=== PATIENT | male | born 1945 ===

== ENCOUNTER 2018-08-20 14:59 | Inpatient (IN) | payer MEDICARE ==
[2018-08-20 15:15] VITALS: BMI 27.4
[2018-08-20] MEDS ORDERED: Sodium Chloride 0.9% 1,000 ML IV STA (15:36)
--- NOTE | 2018-08-20 16:38 | RAD ---
Date of service: 08/20/2018 HISTORY: palpitations COMPARISON: 06/10/2016 FINDINGS: LUNGS: No active pulmonary disease. PLEURA: No significant pleural effusion identified, no pneumothorax apparent. CARDIOVASCULAR: No aortic atherosclerotic calcification present. Mild cardiomegaly no pulmonary vascular congestion. OSSEOUS STRUCTURES: No significant abnormalities. VISUALIZED UPPER ABDOMEN: Normal. OTHER FINDINGS: None. IMPRESSION: No active disease.
[2018-08-20 16:49] LABS: BASO # 0.06 K/mm3 (0.0-2.0); BASO % 0.8 % (0.0-3.0); EOS # 0.3 (0.0-0.7); EOS % 4.2 % (1.5-5.0); HEMOGLOBIN 13.4 g/dL (14.0-18.0); LYMPH # 2.7 (1.2-3.4); MEAN CELL VOLUME 78.8 fl (80.0-105.0); MEAN CORPUSCULAR HEMOGLOBIN 27.3 pg (25.0-35.0); MEAN CORPUSCULAR HGB CONC 34.7 g/dl (31.0-37.0); MEAN PLATELET VOLUME 10.3 fl (7.0-11.0); MONO # 0.5 (0.1-0.6); MONO % 6.3 % (1.0-6.0); RBC 4.9 10^6/uL (3.5-6.1); RED CELL DISTRIBUTION WIDTH 13.7 % (11.5-14.5); WHITE BLOOD COUNT 7.9 10^3/uL (4.5-11.0)
[2018-08-20 16:50] LABS: BLOOD UREA NITROGEN 17 mg/dL (7-21); CALCIUM 9.8 mg/dL (8.4-10.5); GFR NON-AFRICAN AMERICAN > 60
[2018-08-20 17:01] LABS: TROPONIN I < 0.01 ng/mL
--- NOTE | 2018-08-20 17:32 | ED PDOC ---
Arrival/HPI - General Chief Complaint: Palpitations Time Seen by Provider: 08/20/18 15:18 - History of Present Illness Narrative History of Present Illness (Text): Patient reports that he went to his PMD Dr. Ryan for routine lab results, and was found to have HR in the 140's. He does have a history of atrial flutter, states that he takes medication for it but does not remember the name. Weather Observer is Dr. Yates. He does not recall if he has ever had any cardioversion or ablation for the aflutter in the past. He denies any current chest pain, dyspnea, palpitations, or any other symptoms. States that if he did not go to the doctor today he would not have known his heart rate was high. Past Medical History - Provider Review Nursing Documentation Reviewed: Yes FLOYD Report Viewed: Yes - Travel History Have you recently traveled outside [place] w/in the past 3 mons?: No - Infectious Disease Hx of Infectious Diseases: None - Tetanus Immunization Tetanus Immunization: Unknown - Cardiac Hx Cardiac Disorders: Yes Hx Hypertension: Yes Other/Comment: a-flutter - Pulmonary Hx Respiratory Disorders: No - Neurological Hx Neurological Disorder: No - HEENT Hx HEENT Disorder: No - Renal Hx Renal Disorder: No - Endocrine/Metabolic Hx Endocrine Disorders: Yes Hx Diabetes Mellitus Type 2: Yes - Hematological/Oncological Hx Blood Disorders: No - Integumentary Hx Dermatological Disorder: No - Musculoskeletal/Rheumatological Hx Musculoskeletal Disorders: No - Gastrointestinal Hx Gastrointestinal Disorders: No - Genitourinary/Gynecological Hx Genitourinary Disorders: No - Psychiatric Hx Psychophysiologic Disorder: No Hx Substance Use: No - Surgical History Hx Appendectomy: Yes Other/Comment: abdominal surgery - Anesthesia Hx Anesthesia: Yes Hx Anesthesia Reactions: No Hx Malignant Hyperthermia: No - Suicidal Assessment Feels Threatened In Home Enviroment: No Family/Social History - Physician Review Nursing Documentation Reviewed: Yes Family/Social History: Unknown Family HX Smoking Status: Current Some Days Smoker Hx Alcohol Use: No Hx Substance Use: No Hx Substance Use Treatment: No Allergies/Home Meds Allergies/Adverse Reactions: Allergies strawberry Allergy (Verified 08/20/18 15:21) RASH Home Medications: Home Meds Medication Instructions Recorded Confirmed Ramipril [Altace] 10 mg PO DAILY 12/18/12 08/20/18 Glimepiride [amaRYL] 4 mg PO DAILY 08/15/15 08/20/18 metFORMIN [glucOPHAGE] 500 mg PO BID 08/15/15 08/20/18 Aspirin [Aspirin Chewable] 81 mg PO DAILY 08/20/18 08/20/18 Review of Systems - Review of Systems Constitutional: Normal Respiratory: Normal Cardiovascular: Normal Gastrointestinal: Normal Musculoskeletal: Normal Skin: Normal Neurological: Normal Psychiatric: Normal Physical Exam Vital Signs Reviewed: Yes Vital Signs Temp Pulse Resp BP Pulse Ox 08/20/18 16:42 97.9 F 92 H 18 107/85 96 08/20/18 16:34 142 H 109/78 08/20/18 15:15 97.9 F 147 H 19 118/86 98 Temperature: Afebrile Blood Pressure: Normal Pulse: Tachycardic Respiratory Rate: Normal Appearance: Positive for: Well-Appearing, Non-Toxic Pain Distress: None Mental Status: Positive for: Alert and Oriented X 3 - Systems Exam Head: Present: Atraumatic, Normocephalic Conjunctiva: Present: Normal Mouth: Present: Moist Mucous Membranes Respiratory/Chest: Present: Clear to Auscultation Cardiovascular: Present: Tachycardic. No: Irregular Rhythm Abdomen: No: Tenderness, Distention, Rebound, Guarding Upper Extremity: Present: Normal Inspection Lower Extremity: Present: Normal Inspection Neurological: Present: GCS=15 Skin: Present: Warm, Dry, Normal Color. No: Diaphoretic Psychiatric: Present: Alert, Oriented x 3 Medical Decision Making ED Course and Treatment: Patient seen and examined. EKG done showing rapid atrial flutter. Patient with no complaints, states that usually when he goes into rapid aflutter he feels his "heart beating fast", but that he has absolutely no symptoms today. NS bolus initiated. 15mg cardizem ivp given. Repeat HR 91. Labs and CXR done, results reviewed. Case discussed with Dr. Ryan, accepts patient for admission to her service. Consult placed to Dr. Yates. Patient maintained HR 90-100 throughout ED course, continued to have no complaints. However HR started to go up again to the 130's shortly before transfer to the floor. 20mg cardizem ivp given. - Lab Interpretations Lab Results: Troponin I < 0.01 ng/mL 08/20/18 16:35 - RAD Interpretation Narrative RAD Interpretations (Text): IMPRESSION: No active disease Radiology Orders: 08/20/18 15:36 CXR [CHEST PORTABLE] [RAD] Stat - EKG Interpretation EKG Interpretation (Text): 1515 Atrial flutter with variable AV block, rate 136bpm, normal axis, normal QTc, no ST elevation, inferolateral TWI 1718 Atrial flutter with variable AV block, rate 91bpm, normal axis, normal QTc, no ST elevation, TWI again noted in inferolateral leads - Medication Orders Current Medication Orders: Discontinued Medications Diltiazem HCl (Cardizem) 15 mg IVP STAT STA Stop: 08/20/18 15:37 Last Admin: 08/20/18 16:34 Dose: 15 mg IVP Administration Document 08/20/18 16:34 LA (Rec: 08/20/18 16:34 LA [id number]) Charges for Administration # of IVP Administrations 1 MAR Pulse and Blood Pressure Document 08/20/18 16:34 LA (Rec: 08/20/18 16:34 LA [id number]) Pulse Pulse Rate (60-90) 142 Blood Pressure Blood Pressure (100/60-150/90) 109/78 Sodium Chloride (Sodium Chloride 0.9%) 1,000 mls @ 999 mls/hr IV .Q1H1M STA Stop: 08/20/18 16:36 Last Admin: 08/20/18 16:34 Dose: 999 mls/hr eMAR Start Stop Document 08/20/18 16:34 LA (Rec: 08/20/18 16:35 LA [id number]) Intravenous Solution Start Date 08/20/18 Start Time 16:35 End Date 08/20/18 End time 17:36 Total Infusion Time 61 Disposition/Present on Arrival - Present on Arrival Any Indicators Present on Arrival: No History of DVT/PE: No History of Uncontrolled Diabetes: No Urinary Catheter: No History of Decub. Ulcer: No History Surgical Site Infection Following: None - Disposition Have Diagnosis and Disposition been Completed?: Yes Diagnosis: Atrial flutter with rapid ventricular response Disposition: HOSPITALIZED Disposition Time: 17:39 Condition: FAIR
[2018-08-20] MEDS ORDERED: Pneumococcal 23-Valent Vaccine IM ONE (21:20)
[2018-08-20] MEDS ORDERED: Influenza Vaccine 60 mcg/0.5 mL SYR (4YR UP) IM ONE (21:20)
--- NOTE | 2018-08-20 21:43 | CARD ---
APPROVED REPORT Date of service: 08/20/2018 EKG Measurement Heart [id number] [id number] <Conclusion> Poor data quality, interpretation may be adversely affected Atrial flutter with variable AV block Non diagnostic Q waves in the inferior leads T wave abnormalities CCR Abnormal ECG
--- NOTE | 2018-08-20 21:47 | CARD ---
APPROVED REPORT Date of service: 08/20/2018 EKG Measurement Heart [id number] <Conclusion> Atrial flutter with variable AV block T wave abnormalities Abnormal ECG
[2018-08-20] MEDS: Insulin Reg-LOW-Coverage SC SCH (22:05)
[2018-08-21] MEDS ORDERED: diltiaZEM IVPB 100mg in NS 100 ML IV PRN ×2 (07:45→08:55)
[2018-08-21] MEDS: Insulin Reg-LOW-Coverage SC SCH ×4 (08:06→22:18)
--- NOTE | 2018-08-21 15:19 | CON ---
DATE: 08/21/2018 REQUESTING PHYSICIAN: Martha Ryan MD REASON FOR CONSULTATION: Atrial flutter. HISTORY: This is a 73-year-old man well known to me with a history of paroxysmal atrial flutter in the past as well as a history of hypertension, diabetes and remote tobacco abuse, who was being seen for routine blood work. He was noted to be tachycardic and sent to the emergency room. He was noted to be in atrial flutter and was started on IV Cardizem. He remains in atrial flutter at the present time. His current rate is ranging from 100 to 140. He is unaware of any rapid rhythm. He denies any chest pain or dyspnea. He was previously admitted in 2016 with similar problems. He was maintained on antiarrhythmic therapy but had no evidence of recurrence and was ultimately taken off diltiazem. Cardiac work had been performed including a nuclear stress test which showed fixed anteroseptal and apical defect and ejection fraction of 53%. An echocardiogram showed normal LV size and function with mild anteroseptal hypokinesis, mild mitral and tricuspid regurgitation. He had deferred cardiac catheterization in the past. MEDICATIONS AT HOME: Include aspirin, Glucophage, Amaryl and Altace. ALLERGIES: HE HAS NO TRUE ALLERGIES AND NO DRUG ALLERGIES. FAMILY HISTORY: Both parents from age-related illness. SOCIAL HISTORY: He smokes occasionally. He denies alcohol use. He is retired. REVIEW OF SYSTEMS: Ten-point review of systems is otherwise unremarkable. PHYSICAL EXAMINATION GENERAL: He is a middle-aged man, appears comfortable at the present time. VITAL SIGNS: His blood pressure is 130/80 with a pulse of 90-140, respirations are 14. He is afebrile. HEENT: Normocephalic, atraumatic. NECK: Supple. No JVD noted. CHEST: Few scattered rhonchi heard. HEART: PMI displaced laterally with rapid rhythm which is occasionally irregular. ABDOMEN: Soft, nontender. Normoactive bowel sounds. EXTREMITIES: No clubbing, cyanosis, or edema. SKIN: Warm and dry. PSYCHIATRIC: Normal mood and affect. NEUROLOGIC: Alert and oriented x3. No gross motor or sensory deficits noted. DIAGNOSTIC DATA: EKG reveals atria flutter with very low conduction. Chest x-ray reveals mildly increased cardiac silhouette with clear lung iverson. White count 7.9, hemoglobin and hematocrit 13.4 and 38.6 with platelet count of 266,000. Potassium 4.4, BUN and creatinine are 17 and 0.7, glucose 159, troponin is negative. IMPRESSION 1. Paroxysmal atrial flutter now with rapid rate and recurrent, likely secondary to hypertensive heart disease. 2. History of hypertension and diabetes. 3. Mildly abnormal stress test, requested conservative management in the past. RECOMMENDATIONS: IV diltiazem will be continued for now. Oral diltiazem will be added to his regimen as well. If his rate is not well controlled, single dose of digoxin will be administered. Anticoagulant therapy with Eliquis 5 mg b.i.d. has been initiated. If it is not converted to sinus rhythm spontaneously, eventual cardioversion can be considered. Given his recurrence and risk factors, chronic anticoagulant therapy appears appropriate at the present time. Thank you for this consultation and we will be happy to follow along as needed. Wojciech Yates MD MTDD
[2018-08-22 06:56] VITALS: TEMP 98.2; O2SAT 95
[2018-08-22 07:06] LABS: HEMOGLOBIN 12.9 g/dL (14.0-18.0); MEAN CELL VOLUME 77.4 fl (80.0-105.0); MEAN CORPUSCULAR HEMOGLOBIN 27.2 pg (25.0-35.0); MEAN CORPUSCULAR HGB CONC 35.1 g/dl (31.0-37.0); MEAN PLATELET VOLUME 9.7 fl (7.0-11.0); RBC 4.74 10^6/uL (3.5-6.1); RED CELL DISTRIBUTION WIDTH 13.6 % (11.5-14.5); WHITE BLOOD COUNT 6.9 10^3/uL (4.5-11.0)
[2018-08-22 07:12] LABS: IRON 77 ug/dL (45-180)
[2018-08-22 07:15] LABS: BLOOD UREA NITROGEN 14 mg/dL (7-21); CALCIUM 9.7 mg/dL (8.4-10.5); GFR NON-AFRICAN AMERICAN > 60; HDL CHOLESTEROL 31 mg/dL (29-60)
[2018-08-22 07:21] LABS: % IRON SATURATION 23 % (20-55); TOTAL IRON BINDING CAPACITY 336 ug/dL (261-462)
[2018-08-22 07:26] LABS: LDL CHOLESTEROL 115 mg/dL (0-129)
--- NOTE | 2018-08-22 08:32 | HP ---
DATE OF EXAM: 08/21/2018 The patient is a 73-year-old male. The patient was seen and examined at the bedside on 08/21/2018. CHIEF COMPLAINT: Palpitation. HISTORY OF PRESENT ILLNESS: The patient is a 73-year-old male, my private patient with a history of hypertension, came in to my office for regular blood workup followup, found to have heart rate of 150, last visit heart rate was 50. Has history of atrial flutter as per patient states that he takes medications for it, but does not remember the name. The patient's history instructor is Dr. Yates, seen by the patient's history instructor. The patient denies chest pain. No dyspnea. No headache. No dizziness. History of diabetes mellitus, hypertension, and hypercholesteremia. PAST MEDICAL HISTORY: Hypertension, atrial flutter as per patient, diabetes mellitus, and appendectomy. FAMILY HISTORY: Father and mother, noncontributory. HABITS: History of smoking, but light smoker. No alcohol. No substance abuse. ALLERGIES: ALLERGIC TO STRAWBERRIES. HOME MEDICATIONS: Altace, glimepiride, metformin, and aspirin. REVIEW OF SYSTEMS: The patient is seen and examined at the bedside, looking comfortable in the telemetry. At this movement, no fever, no chills, no hematuria, no hematochezia. No headache, no dizziness. No chest pain, no palpitation. PHYSICAL EXAMINATION: VITAL SIGNS: Temperature 97.9, pulse 147 and repeat is 92, respiratory rate 19, and blood pressure 118/86. HEENT: Head is normocephalic and atraumatic. Eyes; PERRLA, extraocular muscles intact, conjunctivae clear. Nose patent. NECK: Supple. No carotid bruits. No thyromegaly. CHEST: Bilaterally symmetrical. HEART: S1 and S2 positive. LUNGS: Clear to auscultation. ABDOMEN: Soft. Bowel sounds present. No organomegaly. EXTREMITIES: No edema. No cyanosis. NEUROLOGIC: The patient is awake and alert. Moving all four extremities. No focal deficits. LABORATORY DATA: White blood cells 7.9, hemoglobin 13.4, hematocrit 38.6, and platelet 266. Sodium 138, potassium 4.4, BUN 17, creatinine 0.7, and glucose 179. ASSESSMENT AND PLAN: The patient is a 73-year-old male with anemia, hyperglycemia, history of hypertension, hypercholesteremia, diabetes mellitus, hypertriglyceridemia, has h/o flutter now with rapid rate and recurrent likely secondary to hypertensive heart disease, history of stress test, requested conservative management in the past as per history instructor. The patient getting IV diltiazem. Continue oral diltiazem, I will get him the regimen as well as per history instructor, if this is not well controlled, single dose of digoxin will be administered. Anticoagulation therapy will be Eliquis 5 mg b.i.d. As per history instructor, if it is not converted to sinus rhythm spontaneously eventually cardioversion will be considered. Given his recurrent risk factor, the chronic anticoagulation therapy appear appropriately at this time. Discussion done with the patient and nursing staff. Repeat labs. We will follow up. Martha Ryan MD MTDApril
[2018-08-22] MEDS: Insulin Reg-LOW-Coverage SC SCH ×2 (08:47→11:58)
[2018-08-22] MEDS ORDERED: diltiaZEM 240 mg/24 Hours CD Cap PO SCH (11:00)
[2018-08-22 13:19] LABS: FOLATE > 20.0 ng/mL
[2018-08-22 15:56] VITALS: BP 125/79; PULSE 98; RESP 18
--- NOTE | 2018-08-22 16:02 | PN ---
DATE: 08/22/2018 SUBJECTIVE: The patient is seen and examined at the bedside on 08/22/2018. Looking comfortable. Still having palpitation. No fevers, no chills. No hematochezia. No headache, no dizziness. No chest pain, no palpitation. Feeling better and no event happened overnight. PHYSICAL EXAMINATION VITAL SIGNS: Temperature 98.2, pulse 91, blood pressure 139/87 and respiratory rate is 20. HEENT: Head: Normocephalic, atraumatic. Eyes: PERRLA. Extraocular muscles intact. Conjunctivae clear. Nose patent. Mucous membrane moist. NECK: Supple. No carotid bruits. No JVD or thyromegaly. CHEST: Bilaterally symmetrical. HEART: S1 and S2 positive. LUNGS: Clear to auscultation. ABDOMEN: Soft. Bowel sounds present. No organomegaly. EXTREMITIES: No edema. No cyanosis. NEUROLOGIC: The patient is awake and alert; moving all 4 extremities. No focal deficits. MEDICATIONS: Altace, Amaryl, aspirin, Cardizem, Eliquis, Glucophage, insulin and gabapentin. LABORATORY DATA: White blood cells 6.9, hemoglobin 12.9, hematocrit 36.7 and platelets 234. Sodium 140, potassium 4.1, BUN 14, creatinine 0.7, glucose 127 and triglycerides 215. ASSESSMENT AND PLAN: a 73-year-old male with anemia, diabetes mellitus uncontrolled, hypertriglyceridemia, has history of atrial flutter now with deferred rate and recurrent likely secondary to hypertensive heart disease. The patient is on Cardizem drip and Cardizem. Dr. Wojciech Yates, history of hypertension, diabetes mellitus and mildly abnormal as the patient had mildly abnormal stress test. I requested a conservative management in the past. Now Eliquis is started for anticoagulation. Waiting for Dr. Yates's input. Gastrointestinal and deep venous thrombosis prophylaxis. Repeat labs. We will follow. Martha Ryan MD MTDD
--- NOTE | 2018-08-23 01:20 | PN ---
DATE: 08/22/2018 SUBJECTIVE: The patient is seen lying in bed on telemetry. He remains comfortable at present time. He remains in atrial flutter. His rate is controlled most of the time. He has had increased rate to 120 beats per minute this morning. His current medications include Altace 10 mg daily, Amaryl, Eliquis 5 mg b.i.d., diltiazem 60 mg t.i.d., Glucophage, Neurontin, and Pepcid. OBJECTIVE: GENERAL: He is a middle-aged man who is comfortable at the present time. VITAL SIGNS: His blood pressure is 140/86 with pulse of 100, respirations of 14, and in atrial flutter. HEENT: No JVD. CHEST: Few scattered rhonchi. HEART: No pathological murmurs or gallops noted. ABDOMEN: Soft, nontender with bowel sounds. EXTREMITIES: No edema. DIAGNOSTIC DATA: Potassium 4.1, BUN and creatinine 14 and 0.7. White count 6.9, hemoglobin and hematocrit 12.9 and 36.7, and platelet count of 234,000. Hemoglobin A1c is 8.6%. IMPRESSION: 1. Recurrent and persistent atrial flutter, rate control is reasonable at this time. 2. History of hypertension and diabetes. 3. Mildly abnormal stress test in the past. RECOMMENDATIONS: Diltiazem will be switched to long-acting and increased to 240 mg daily. Eliquis will be continued unchanged. From cardiac standpoint, he appears stable for discharge home at this time. The need for continued anticoagulant therapy was discussed with him. Outpatient followup will be arranged. If he remains in atrial flutter, consideration will be given to possible electrical cardioversion. Outpatient followup has been arranged. Wojciech Yates MD
== END 2018-08-22 16:46 | disposition home or self-care (01) | DRG 310 ==
LOC: ED 14:59 → ERH 17:39 → 2RNO 20:49
PROVIDERS: ADMIT Internal Medicine; ATTEND Internal Medicine
DX: I48.92 Unspecified atrial flutter (principal); I44.30 Unspecified atrioventricular block; I11.9 Hypertensive heart disease without heart failure; E11.65 Type 2 diabetes mellitus with hyperglycemia; I08.1 Rheumatic disorders of both mitral and tricuspid valves; E78.1 Pure hyperglyceridemia; E78.00 Pure hypercholesterolemia, unspecified; D64.9 Anemia, unspecified; F17.200 Nicotine dependence, unspecified, uncomplicated; Z79.84 Long term (current) use of oral hypoglycemic drugs; Z79.82 Long term (current) use of aspirin

== ENCOUNTER 2018-09-12 17:15 | Emergency (ER) | payer MEDICARE ==
[2018-09-12 17:15] VITALS: BMI 27.4
[2018-09-12 17:42] VITALS: TEMP 97.3; O2SAT 98
--- NOTE | 2018-09-12 18:05 | ED PDOC ---
Arrival/HPI - General Chief Complaint: Lower Extremity Problem/Injury Time Seen by Provider: 09/12/18 18:01 Historian: Patient - History of Present Illness Narrative History of Present Illness (Text): 09/12/18 18:02 73 y/o male, pmh including htn and on eliquis, c/o lt. foot dorsum pain s/p heard popping sound while walking x 1 day. Aching pain, was having pain but resolved, no numbness or tingling, no headache or night sweat, no rash, no dizziness, no calf or heel pain, no ankle pain, no diarrhea, no other medical or psychological complaints. Past Medical History - Provider Review Nursing Documentation Reviewed: Yes - Infectious Disease Hx of Infectious Diseases: None - Tetanus Immunization Tetanus Immunization: Unknown - Cardiac Hx Cardiac Disorders: Yes Hx Hypertension: Yes Other/Comment: a-flutter - Pulmonary Hx Respiratory Disorders: No - Neurological Hx Neurological Disorder: No - HEENT Hx HEENT Disorder: No - Renal Hx Renal Disorder: No - Endocrine/Metabolic Hx Endocrine Disorders: Yes Hx Diabetes Mellitus Type 2: Yes - Hematological/Oncological Hx Blood Disorders: No - Integumentary Hx Dermatological Disorder: No - Musculoskeletal/Rheumatological Hx Musculoskeletal Disorders: No - Gastrointestinal Hx Gastrointestinal Disorders: No - Genitourinary/Gynecological Hx Genitourinary Disorders: No - Psychiatric Hx Psychophysiologic Disorder: No Hx Substance Use: No - Surgical History Hx Appendectomy: Yes Other/Comment: abdominal surgery - Anesthesia Hx Anesthesia: Yes Hx Anesthesia Reactions: No Hx Malignant Hyperthermia: No - Suicidal Assessment Feels Threatened In Home Enviroment: No Family/Social History - Physician Review Nursing Documentation Reviewed: Yes Family/Social History: Unknown Family HX Smoking Status: Current Some Days Smoker Hx Alcohol Use: No Hx Substance Use: No Hx Substance Use Treatment: No Allergies/Home Meds Allergies/Adverse Reactions: Allergies strawberry Allergy (Verified 08/20/18 15:21) RASH Home Medications: Home Meds Medication Instructions Recorded Confirmed Ramipril [Altace] 10 mg PO DAILY 12/18/12 08/20/18 Glimepiride [amaRYL] 4 mg PO DAILY 08/15/15 08/20/18 metFORMIN [glucOPHAGE] 500 mg PO BID 08/15/15 08/20/18 Aspirin [Aspirin Chewable] 81 mg PO DAILY 08/20/18 08/20/18 Eliquis 5 mg PO BID 08/22/18 08/22/18 diltiaZEM CD [Cardizem CD] 240 mg PO DAILY 08/22/18 08/22/18 Review of Systems - Review of Systems Constitutional: absent: Fatigue, Fevers Eyes: absent: Vision Changes ENT: absent: Hearing Changes Respiratory: absent: SOB, Cough Cardiovascular: absent: Chest Pain Gastrointestinal: absent: Abdominal Pain, Nausea, Vomiting Musculoskeletal: Arthralgias. absent: Back Pain, Neck Pain, Joint Swelling, Myalgias Skin: absent: Rash, Pruritis Neurological: absent: Headache, Dizziness Psychiatric: absent: Anxiety, Depression, Suicidal Ideation Physical Exam Vital Signs Reviewed: Yes Vital Signs Temp Pulse Resp BP Pulse Ox 09/12/18 17:37 97.3 F L 94 H 98 H 114/76 98 Temperature: Afebrile Blood Pressure: Normal Pulse: Regular Respiratory Rate: Normal Appearance: Positive for: Well-Appearing, Non-Toxic, Comfortable Pain Distress: Mild Mental Status: Positive for: Alert and Oriented X 3 - Systems Exam Head: Present: Atraumatic, Normocephalic Pupils: Present: PERRL Extroacular Muscles: Present: EOMI Conjunctiva: Present: Normal Mouth: Present: Moist Mucous Membranes Neck: Present: Normal Range of Motion Respiratory/Chest: Present: Clear to Auscultation, Good Air Exchange. No: Respiratory Distress, Accessory Muscle Use Cardiovascular: Present: Regular Rate and Rhythm, Normal S1, S2. No: Murmurs Abdomen: No: Tenderness, Distention, Peritoneal Signs Back: Present: Normal Inspection Upper Extremity: Present: Normal Inspection. No: Cyanosis, Edema Lower Extremity: Present: Normal Inspection, Other (Lt. ankle/foot: mild +ttp on the dorsum foot, no swelling, no deformity, no ankle tenderness or swelling, FROM without limitation, sensation intact, motor 5/5, +DPPT pulses, capillary refill< 2 seconds, neurovascular intact. ). No: Edema Neurological: Present: GCS=15, CN II-XII Intact, Speech Normal Skin: Present: Warm, Dry, Normal Color. No: Rashes Psychiatric: Present: Alert, Oriented x 3, Normal Insight, Normal Concentration Medical Decision Making ED Course and Treatment: 09/12/18 18:05 -Lt. foot xray -Camilo wrap -Observe and reassess 09/12/18 19:06 -Lt. foot xray No acute displaced fracture, dislocation, or significant joint effusion identified. If symptoms persist, or if there is continued clinical concern, x-ray follow-up in 7-10 days should be considered. -Camilo wrap applied with neurovascular intact, cane ordered as he is not a crutch candidate -Discharge home with camilo wrap, cane, tylenol for pain as needed, follow up with your own pmd and auto glass technician within 2 days, return to the ER for any new or worsening signs or symptoms. - RAD Interpretation Radiology Orders: 09/12/18 18:01 FOOT LEFT 3 VIEWS ROUTINE [RAD] Stat PROCEDURE: Left Foot Radiographs. 3 views. HISTORY: lt. foot dorsum pain COMPARISON: None available. FINDINGS: BONES: Small calcaneal enthesophyte. Osseous demineralization limits evaluation for acute fracture lines. No acute displaced fracture. JOINTS: No dislocation. SOFT TISSUES: Vascular calcifications. No evidence of radiopaque foreign body. OTHER FINDINGS: None. IMPRESSION: No acute displaced fracture, dislocation, or significant joint effusion identified. If symptoms persist, or if there is continued clinical concern, x-ray follow-up in 7-10 days should be considered. Furnace Repair Mechanic: Radiologist - PA / DIRECTOR OF ADVERTISING SALES / Resident Statement MD/DO has reviewed & agrees with the documentation as recorded. Disposition/Present on Arrival - Present on Arrival Any Indicators Present on Arrival: No History of DVT/PE: No History of Uncontrolled Diabetes: No Urinary Catheter: No History of Decub. Ulcer: No History Surgical Site Infection Following: None - Disposition Have Diagnosis and Disposition been Completed?: Yes Diagnosis: Foot injury, Foot pain Disposition: HOME/ ROUTINE Disposition Time: 19:06 Patient Plan: Discharge Condition: GOOD Additional Instructions: -Discharge home with camilo wrap, cane, tylenol for pain as needed, follow up with your own pmd and auto glass technician within 2 days, return to the ER for any new or worsening signs or symptoms. Referrals: Martha Ryan MD [Primary Care Provider] - Follow up with primary Benjamin Wild DPM [Staff Provider] - Follow up with primary Forms: [employer] (Hebrew), WORK NOTE
[2018-09-12 18:09] VITALS: BP 116/71; PULSE 89; RESP 18
--- NOTE | 2018-09-12 18:57 | RAD ---
PROCEDURE: Left Foot Radiographs. 3 views. HISTORY: lt. foot dorsum pain COMPARISON: None available. FINDINGS: BONES: Small calcaneal enthesophyte. Osseous demineralization limits evaluation for acute fracture lines. No acute displaced fracture. JOINTS: No dislocation. SOFT TISSUES: Vascular calcifications. No evidence of radiopaque foreign body. OTHER FINDINGS: None. IMPRESSION: No acute displaced fracture, dislocation, or significant joint effusion identified. If symptoms persist, or if there is continued clinical concern, x-ray follow-up in 7-10 days should be considered.
== END 2018-09-12 19:10 | disposition home or self-care (01) ==
LOC: ED 17:15
DX: S99.922A Unspecified injury of left foot, initial encounter (principal); X50.0XXA Overexertion from strenuous movement or load, initial encounter; M79.672 Pain in left foot